=== PATIENT | female | born 1985 | race Caucasian/White ===

== ENCOUNTER 2023-06-14 00:33 | Day surgery (SDC) | payer BC, SELFPAY ==
[2023-06-04 15:04] VITALS: BMI 36.6
--- NOTE | 2023-06-04 15:32 | SUR.PREOP ---
Report to the Outpatient Waiting Room, entrance under the green pavilion located off [facility], at time 0630 on date 06/14/2023. Planned Procedure Time: 0830. Time changes happen often and if your time is changed the preop area will call you the afternoon before. - You and your visitor will be asked to self-screen and do not enter if you have any COVID symptoms. - A mask is optional within the hospital at this time. Patients may have clear liquids (water, carbonated beverages, clear teas, apple juice) until 3 hours prior to surgery with a maximum of 20 ounces- 0530. - No food from midnight until time of surgery - Infants may have breast milk until 4 hours before surgery, formula 6 hours prior to surgery. - Children will be allowed to drink immediately following surgery. If applicable, please bring a bottle or sippy cup to assist with drinking. Juice, water, soda, and popsicles are readily available. For infants on formula, please bring formula the day of surgery. Pacifiers are allowed. Take the following medications with a SIP of water the morning of surgery: metoprolol succinate DO NOT STOP ANY OF YOUR OTHER PRESCRIPTION MEDICATIONS PRIOR TO SURGERY ?EXCEPT THE FOLLOWING Medications to discontinue per physician Iron- 3 days Date to take last dose 06/10/2023 Please no make-up, nail croatian, hairspray, perfume, deodorant, or body powder the day of surgery. No jewelry (including any body piercings) or valuables the day of surgery, leave them at home. Please take a shower or bath the night before, or the morning of, surgery with an antibacterial soap. Wear comfortable, loose fitting clothing. Children are encouraged to wear pajamas. - Jewelry must be removed prior to entering the operating room. Rings and piercings that are not removed may be cut off. - The hospital will not accept responsibility for valuables. - Please leave all valuables, including medications, at home the day of surgery. If you are going home after surgery, a licensed [employer] driver must drive you home. - NO public transportation without another adult if you receive anesthesia. - We recommend that an adult stay with you for 24 hours following discharge. - We also recommend that you do not drive, make important decision, drink alcoholic beverages, or take any drugs that were not prescribed by your health care provider for at least 24 hours after your discharge time. For Pediatric surgeries, we recommend two adults accompany the child home. Follow any additional instructions given to you from your surgeon. If you or anyone in your household have experienced Covid symptoms in the past week, please notify your surgeon or the nurse liaison at the phone number below for possible testing. Telephone instructions given to patient- Sujatha and asked if any additional questions and then verbalized understanding. Patient advised to call surgeon office or pre surgery nurse liaison [phone] if any additional questions.
[2023-06-14] VITALS (8 sets, daily range): BP systolic 120–148; BP diastolic 80–97; PULSE 63–79; RESP 13–16; TEMP 36.2; O2SAT 96–100
--- NOTE | 2023-06-14 07:10 | WPDHPUPDATE1 ---
History and Physical Update Update Date/Time: 06/14/23 07:10 History and Physical has been reviewed, including an updated exam of the patient. There are NO changes in the patient's condition. Risks, benefits, and alternatives have been discussed and questions answered. Patient agrees to proceed with procedure.
--- NOTE | 2023-06-14 07:27 | WPDANESEPPF ---
Anes - Initial Pre Proc Eval Procedure: Operation Date: 06/14/23 08:30 Proposed Procedures p Bilateral Laparoscopic Salpingectomy - Audi Lao MD s Excision of Vulvar Lesion - Audi Lao MD Date/Time: 06/14/23 07:27 Surgeon: Audi Lao MD Pre Op Diagnosis: desires sterilization, Vulvar Lesion Patient Data Age: 37 Gender: F Height: 1.57 m Weight: 92.3 kg Allergies Allergy/AdvReac Type Severity Reaction Status Date / Time Sulfa (Sulfonamide Allergy Severe Swelling Verified 06/14/23 07:18 Antibiotics) sulfamethoxazole Allergy Intermediate Swelling Verified 06/14/23 07:18 trimethoprim Allergy Intermediate Swelling Verified 06/14/23 07:18 Home Medications Medication Instructions Recorded Confirmed Type ferrous sulfate 324 mg (65 mg 65 mg PO DAILY 06/04/23 06/14/23 History iron) tablet,delayed release metoprolol succinate 50 mg 100 mg PO DAILY 06/04/23 06/14/23 History tablet,extended release 24 hr Patient hx anesthesia problems: none Family hx anesthesia problems: none Results Review: All pre-operative results and documents have been reviewed as part of the pre-operative evaluation. [facility] Past Medical History Medical History Anxiety Encounter for screening examination for sexually transmitted disease History of hypertension rx meds Metatarsal bone fracture Surgical History Surgical History History of appendectomy (~2010) Family History Family History Mother Hypertension Acute myocardial infarction Grandparent Hypertension maternal grandmother Acute myocardial infarction maternal grandmother Sibling Acute myocardial infarction, Onset Age: 35 brother Other Diabetes mellitus maternal aunt Other Lung cancer Social History Social History Smoking status: Never smoker Alcohol intake: current Alcohol use details: 1-2x per month Substance use: current Substance use type: marijuana Other substance usage details: 06/03/2023 Lack of Transportation: No Lack of Food: Never True Current Housing: I Have Housing Concerned About Future Housing: No Difficulty Paying Gas/Electric Bills: No Difficulty Paying for Meds: No Currently Unemployed: No Education: Associate Degree Difficulty w/ Childcare or Family Care: No Living arrangements: with family Additional living arrangements comments: with kids single Occupation/Education: occupation 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 Gender identity (if verbalized by the patient): Female Sexual Orientation (if Verbalized by the Patient): Straight or Heterosexual Spiritual care concerns: No Anes - Eval Final PreProcedure Day of Procedure 06/14/23 07:27 Patient weight: obese Heart: regular rate and rhythm Lungs: clear to auscultation Airway: Mallampati scale class II Neurological: alert and oriented Last oral intake: >/= 8 hours ASA classification: II Emergent: no Anesthetic plan: proceed Anesthesia type and monitoring: general ETT and standard monitoring Results Review: All pre-operative results and documents have been reviewed as part of the pre-operative evaluation. Informed Consent: The patient's anesthetic plan and its attendant risks and benefits were discussed with the patient/family/POA. Questions were solicited and answers provided to the satisfaction of the patient/family/POA.
[2023-06-14] MEDS: ACETAMINOPHEN 500 MG TABLET 1000 MG PO (07:32)
[2023-06-14] MEDS: KETOROLAC 15 MG/ML VIAL (*BKC) IV PUSH (07:33)
[2023-06-14] MEDS: LACTATED RINGERS 1,000 ML 30 ML IV CONT ×2 (07:35→09:10)
[2023-06-14] MEDS: LIDOCAINE 1% BUFFERED WITH 8.4% SODIUM BICARB 1 ML SYRINGE 20 ML INFILTRATE (08:45)
--- NOTE | 2023-06-14 09:02 | W.PM.PROC2 ---
Procedure Note - Detailed Date of Procedure 06/14/23 Pre-op Diagnosis desires sterilization, Vulvar Lesion Post-op Diagnosis Same Procedure Performed 1. Laparoscopic bilateral salpingectomy 2. Excision vulvar lesion (3cm) Surgeon Audi Lao MD Anesthesia General Findings Uterus tubes ovaries without abnormality. Left vulvar 3cm lesion Description of Procedure Patient was prepped and draped in usual manner for this procedure. Abdominal trocar sites were marked and trocars were placed under direct visualization. Using the Harmonic scalpel bilaterally the mesial salpinx was cauterized and cut and tubes removed without difficulty. Notation of prior right lower quadrant appendectomy was noted. Gas was allowed to escape trocars removed and the trocar sites were approximated using 0 Monocryl suture. Attention then placed to the lesion which was injected with lidocaine and removed without difficulty. Bacitracin was placed and bandage was placed over this area. Patient was then sent to the recovery room in stable condition. Estimated Blood Loss 10 Drains No Packing No Pathology Yes Complications No immediate complications Condition Stable Disposition PACU [facility] Billing Surgery - Charge Forward: Surgery Billing
[2023-06-14] MEDS: fentaNYL CITRATE INJ (*CRX) 100 MCG/2 ML VIAL 25 MCG IV PUSH ×4 (09:29→09:39)
[2023-06-14] MEDS: oxyCODONE HCL (*CRX) 5 MG TAB IR PO (10:06)
== END 2023-06-14 11:15 | disposition home or self-care (01) ==
PROVIDERS: Visit Provider Obstetrics & Gynecology
PROC: (CPT 49320; principal; 2023-06-14 08:30)
PROC: (CPT 11423; 2023-06-14 08:30)
DX: Z30.2 Encounter for sterilization (principal); D28.0 Benign neoplasm of vulva; N83.8 Other noninflammatory disorders of ovary, fallopian tube and broad ligament; F41.9 Anxiety disorder, unspecified; I10 Essential (primary) hypertension; Z82.49 Family history of ischemic heart disease and other diseases of the circulatory system; N90.89 Other specified noninflammatory disorders of vulva and perineum; E66.9 Obesity, unspecified; Z68.37 Body mass index [BMI] 37.0-37.9, adult
CPT/HCPCS: 11423; 58661; 88302; 88305; A9270; J0330; J1100; J1885; J2250; J2405; J2704; J3010; J7120